=== PATIENT | male | born 1970 | race Hispanic/Latino ===

== ENCOUNTER 2017-08-07 10:16 | Emergency (ER) | payer MEDICAID ==
[2017-08-07 10:25] VITALS: BP 111/68; PULSE 85; RESP 20; TEMP 97.3; O2SAT 100
--- NOTE | 2017-08-07 10:41 | C.PDOC ---
History Of Present Illness REQUESTING RX FOR CYMBALTA. PS W NEW PMD, STARTED HIM ON [facility] FOR DIABETIC NEUROPATHY. USED TO BE ON OXYCODONE BUT NO LONGER ON NARCOTIC. OLD PMD RETIRED. HAS HAD RX FOR 1 WEEK BUT INSURANCE WILL NOT COVER. WAS ADVISED BY INSURANCE TO COME TO ER FOR CYMBALTA RX "BC THATS WHAT INSURANCE WILL COVER". 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 PMD RETURNS 09/13. ADVISED NEED FOR PMD/ PAIN MGMT FU FOR LONGTERM CYMBALTA REFILL Time Seen by Provider: 08/07/17 10:31 Chief Complaint (Nursing): Med Refill History Per: Patient History/Exam Limitations: no limitations Onset/Duration Of Symptoms: Days Past Medical History Reviewed: Historical Data, Nursing Documentation, Vital Signs Vital Signs: Last Vital Signs Temp 97.3 F L 08/07/17 10:24 Pulse 85 08/07/17 10:24 Resp 20 08/07/17 10:24 BP 111/68 08/07/17 10:24 Pulse Ox 100 08/07/17 10:50 - Medical History PMH: CAD, CHF, Diabetes, Gastritis, HTN, Hypercholesterolemia, Chronic Kidney Disease Family History: States: No Known Family Hx - Social History Hx Tobacco Use: No Hx Alcohol Use: No Hx Substance Use: No - Immunization History Hx Tetanus Toxoid Vaccination: No Hx Influenza Vaccination: Yes Hx Pneumococcal Vaccination: No Review Of Systems Except As Marked, All Systems Reviewed And Found Negative. Constitutional: Negative for: Fever Cardiovascular: Negative for: Chest Pain Respiratory: Negative for: Shortness of Breath Gastrointestinal: Negative for: Nausea, Vomiting Physical Exam - Physical Exam Appears: Non-toxic, No Acute Distress Skin: Warm, Dry, No Rash Head: Atraumatic, Normacephalic Neurological/Psych: Oriented x3, Normal Speech Gait: Other (Chronic motorized scooter use) ED Course And Treatment O2 Sat by Pulse Oximetry: 100 (RA) Pulse Ox Interpretation: Normal Progress - Re-Evaluation Re-evaluation Note: 08/07/17 10:41 Filled ID Written Drug QTY Days Prescriber Rx # Pharmacy * Refills MME/D Pymt Type [employer] 05/14/2017 1 05/14/2017 OXYCODONE HCL 15 MG TABLET 15.0 5 JE THO [id number] DAVID ([id number]) 0 67.5 [facility] [place] 05/14/2017 1 05/14/2017 TEMAZEPAM 15 MG CAPSULE 10.0 10 JE THO [id number] DAVID ([id number]) 0 [facility] [place] 04/06/2017 1 04/06/2017 TEMAZEPAM 15 MG CAPSULE 10.0 10 JE THO [id number] DAVID ([id number]) 0 [facility] [place] 04/06/2017 1 04/06/2017 OXYCODONE HCL 15 MG TABLET 15.0 5 JE THO [id number] DAVID ([id number]) 0 67.5 [facility] [place] 01/27/2017 1 01/27/2017 TEMAZEPAM 15 MG CAPSULE 30.0 30 HU PER [id number] DAVID ([id number]) 0 [facility] [place] 11/30/2016 1 11/29/2016 OXYCODONE HCL 15 MG TABLET 20.0 5 HU PER [id number] DAVID ([id number]) 0 90.0 [facility] [place] - Data Reviewed Data Reviewed: Old records, Other ([facility]) Medical Decision Making Medical Decision Making: NOTE: PS PENDING PAIN MGMT EVAL LATE AUGUST. PMD RETURNS 09/13. ADVISED NEED FOR PMD/ PAIN MGMT FU FOR LONGTERM CYMBALTA REFILL Disposition Counseled Patient/Family Regarding: Diagnosis, Need For Followup, Rx Given - Disposition Referrals: YOUR,PMD [Other] Disposition: HOME/ ROUTINE Disposition Time: 10:47 Condition: GOOD Prescriptions: DULoxetine [Cymbalta] 60 mg PO DAILY #30 ecc Instructions: Medicine Refill (ED) Forms: [facility] ([place]) - Clinical Impression Clinical Impression: Medication refill, Neuropathy - Scribe Statement The provider has reviewed the documentation as recorded by the Dinh Johns Provider Attestation: All medical record entries made by the Dinh were at my direction and personally dictated by me. I have reviewed the chart and agree that the record accurately reflects my personal performance of the history, physical exam, medical decision making, and the department course for this patient. I have also personally directed, reviewed, and agree with the discharge instructions and disposition.
== END 2017-08-07 10:51 | disposition home or self-care (01) ==
LOC: C.ER 10:16
DX: Z76.0 Encounter for issue of repeat prescription (principal); G62.9 Polyneuropathy, unspecified